=== PATIENT | male | born 1995 ===

== ENCOUNTER 2016-11-03 23:56 | Emergency (ER) | payer OTHER ==
[2016-11-04 00:05] VITALS: BP 122/78; PULSE 80; RESP 18; TEMP 98.6; O2SAT 99
--- NOTE | 2016-11-04 00:40 | C.PDOC ---
History Of Present Illness 21 year old male who presents to the ER after sustaining a laceration to the left hand while fixing his car; denies weakness or numbness. Patient's tetanus vaccination is up to date. Time Seen by Provider: 11/04/16 00:08 Chief Complaint (Nursing): Abnormal Skin Integrity History Per: Patient History/Exam Limitations: no limitations Onset/Duration Of Symptoms: Hrs Current Symptoms Are (Timing): Still Present Location Of Injury: Left: Hand Quality Of Symptoms: Other (Laceration) Recent travel outside of the [place]: No - Animal Bite Reports Animal's Immunization Status: UTD Past Medical History Reviewed: Historical Data, Nursing Documentation, Vital Signs Vital Signs: Last Vital Signs Temp 98.6 F 11/04/16 00:04 Pulse 80 11/04/16 00:04 Resp 18 11/04/16 00:04 BP 122/78 11/04/16 00:04 Pulse Ox 99 11/04/16 03:13 - Medical History PMH: No Chronic Diseases Surgical History: No Surg Hx Family History: States: Unknown Family Hx - Social History Hx Alcohol Use: No Hx Substance Use: No Review Of Systems Skin: Positive for: Other (Laceration) Neurological: Negative for: Weakness, Numbness Physical Exam - Physical Exam Appears: Non-toxic, No Acute Distress Skin: Warm, Dry Head: Atraumatic, Normacephalic Oral Mucosa: Moist Extremity: Normal ROM (x4), Capillary Refill (Good), Other (2cm superficial laceration to thenar eminence of left hand. No FB palpated, no tendon laceration visualized.) Pulses: Left Radial: Normal, Right Radial: Normal Neurological/Psych: Oriented x3, Normal Speech, Normal Cognition, Normal Motor, Normal Sensation ED Course And Treatment O2 Sat by Pulse Oximetry: 99 (Room air) Pulse Ox Interpretation: Normal Progress Note: Wound irrigated, repaired, and dressed. Will discharge home with proper wound care instructions. Laceration - Laceration Repair Left Hand Wound Length (In cm): 2 Description Of Wound: Linear Wound Cleansed With: Betadine, Sterile Saline Wound Examination: Irrigated With Saline, No FB With Wound Exploration, No Tendon Injury With Wound Exploration Wound Closure: Steri Strips (3), Skin Glue (Dermabond) Wound Complexity: Simple Disposition - Disposition Disposition: HOME/ ROUTINE Disposition Time: 00:38 Condition: STABLE Additional Instructions: PLEASE KEEP WOUND CLEAN AND DRY FOR 2 DAYS FOLLOW UP WITH PMD RETURN TO ER IF WORSE Instructions: Steristrips (ED) Forms: [facility] (Persian) - Clinical Impression Clinical Impression: Laceration of hand, left - Scribe Statement The provider has reviewed the documentation as recorded by the Scribe Garth Lu All medical record entries made by the Scribe were at my direction and personally dictated by me. I have reviewed the chart and agree that the record accurately reflects my personal performance of the history, physical exam, medical decision making, and the department course for this patient. I have also personally directed, reviewed, and agree with the discharge instructions and disposition.
== END 2016-11-04 00:42 | disposition home or self-care (01) ==
LOC: C.ER 23:56
DX: S61.412A Laceration without foreign body of left hand, initial encounter (principal); X58.XXXA Exposure to other specified factors, initial encounter